=== PATIENT | male | born 1975 | race Caucasian/White ===

== ENCOUNTER 2022-11-17 13:56 | Emergency (ER) | payer OTHER ==
[2022-11-17 14:07] VITALS: RESP 18
[2022-11-17] MEDS ORDERED: SODIUM CHLORIDE 0.9% 1,000 ML IV ONE (14:57)
--- NOTE | 2022-11-17 15:29 | ED ---
General Adult HPI - General Chief complaint: Skin/Abscess/Foreign Body Stated complaint: rash on groin Time Seen by Provider: 11/17/22 14:15 Source: patient, RN notes reviewed Mode of arrival: ambulatory Limitations: no limitations - History of Present Illness Initial comments: 47-year-old male with no significant past medical history of the ER with a chief complaint of rash. He reports that yesterday he noticed a bright red rash in his bilateral groin area. He denies any new lotions or detergents, soaps. He has never had this before. No one else in the household has this. He denies any fever, chills. He tried putting an antifungal cream on it which made it worse. He admits that it is painful with palpation. - Related Data Allergies Allergy/AdvReac Type Severity Reaction Status Date / Time No Known Allergies Allergy Verified 11/17/22 14:07 Review of Systems ROS Statement: Those systems with pertinent positive or pertinent negative responses have been documented in the HPI. ROS Other: All systems not noted in ROS Statement are negative. Past Medical History Past Medical History: Hypertension Additional Past Medical History / Comment(s): chronic back pain. History of Any Multi-Drug Resistant Organisms: None Reported Past Surgical History: Orthopedic Surgery Smoking Status: Current every day smoker Past Alcohol Use History: None Reported Past Drug Use History: Methamphetamine General Exam Limitations: no limitations General appearance: alert, in no apparent distress Head exam: Present: atraumatic, normocephalic, normal inspection Eye exam: Present: normal appearance, PERRL, EOMI. Absent: scleral icterus, conjunctival injection, periorbital swelling ENT exam: Present: normal exam, mucous membranes moist Neck exam: Present: normal inspection. Absent: tenderness, meningismus, lymphadenopathy Respiratory exam: Present: normal lung sounds bilaterally. Absent: respiratory distress, wheezes, rales, rhonchi, stridor Cardiovascular Exam: Present: regular rate, normal rhythm, normal heart sounds. Absent: systolic murmur, diastolic murmur, rubs, gallop, clicks GI/Abdominal exam: Present: soft, normal bowel sounds. Absent: distended, tenderness, guarding, rebound, rigid exam: Present: other ([employer] Wan present during exam ) External exam: Present: erythema, other (Erythema to bilateral groin folds with purulent discharge with marked tenderness ). Absent: normal external exam Extremities exam: Present: normal inspection, full ROM, normal capillary refill. Absent: tenderness, pedal edema, joint swelling, calf tenderness Back exam: Present: normal inspection Neurological exam: Present: alert, oriented X3, CN II-XII intact Psychiatric exam: Present: normal affect, normal mood Skin exam: Present: warm, dry, intact, normal color. Absent: rash Course Vital Signs 11/17/22 11/17/22 11/17/22 14:04 15:07 16:07 Temperature 97.9 F Pulse Rate 106 H 100 97 Respiratory 18 18 18 Rate Blood Pressure 144/97 150/76 O2 Sat by Pulse 97 96 96 Oximetry 11/17/22 16:52 Temperature 97.4 F L Pulse Rate 102 H Respiratory 18 Rate Blood Pressure 156/94 O2 Sat by Pulse 95 Oximetry Medical Decision Making - Medical Decision Making Was pt. sent in by a medical professional or institution (Dr. PA, COFFEE GRINDER, urgent care, hospital, or senior care...) When possible be specific @ -[No] Did you speak to anyone other than the patient for history (EMS, parent, family, police, friend...)? What history was obtained from this source @ -[No] Did you review nursing and triage notes (agree or disagree)? Why? @ -[I reviewed and agree with nursing and triage notes] Were old charts reviewed (outside hosp., previous admission, EMS record, old EKG, old radiological studies, urgent care reports/EKG's, senior care records)? Report findings @ -[No old charts were reviewed] Differential Diagnosis (chest pain, altered mental status, abdominal pain women, abdominal pain men, vaginal bleeding, weakness, fever, dyspnea, syncope, headache, dizziness, GI bleed, back pain, seizure, CVA, palpatations, mental health, musculoskeletal)? @ -[not applicable] EKG interpreted by me (3pts min.). @ -[As above] X-rays interpreted by me (1pt min.). @ -[None done] CT interpreted by me (1pt min.). @ -[None done] U/S interpreted by me (1pt. min.). @ -[None done] What testing was considered but not performed or refused? (CT, X-rays, U/S, labs)? Why? @ -[None] What meds were considered but not given or refused? Why? @ -[None] Did you discuss the management of the patient with other professionals (professionals i.e. , PA, COFFEE GRINDER, lab, RT, psych nurse, social services manager, recreation program specialist, teacher, corporate banking officer, supportive employment case manager)? Give summary @ -[No] Was smoking cessation discussed for >3mins.? @ -[No] Was critical care preformed (if so, how long)? @ -[No] Were there social determinants of health that impacted care today? How? (Homelessness, low income, unemployed, alcoholism, drug addiction, transportation, low edu. Level, literacy, decrease access to med. care, [facility], rehab)? @ -[No] Was there de-escalation of care discussed even if they declined (Discuss DNR or withdrawal of care, Hospice)? DNR status @ -[No] What co-morbidities impacted this encounter? (DM, HTN, Smoking, COPD, CAD, Cancer, CVA, ARF, Chemo, Hep., AIDS, mental health diagnosis, sleep apnea, morbid obesity)? @ -[None] Was patient admitted / discharged? Hospital course, mention meds given and route, prescriptions, significant lab abnormalities, going to OR and other pertinent info. @ -Discharged. This is a 47-year-old female who presents to the emergency department with rash. Patient had a thorough history and physical exam performed on the ED. Physical exam is essentially unremarkable. Heart rate regular rate and rhythm, lungs clear to auscultation bilaterally abdomen is soft and non-tender. Patient was offered nystatin cream in the ED however, reqested to apply it himself. I discussed the results in detail with the patient verbalized understanding and all questions were addressed. Return precautions were discussed at length. The patient was discharged in stable condition. Case discussed with BHUMIKA [place] who agrees with plan of care Undiagnosed new problem with uncertain prognosis? @ -[No] Drug Therapy requiring intensive monitoring for toxicity (Heparin, Nitro, Insulin, Cardizem)? @ -[No] Were any procedures done? @ -[No] Diagnosis/symptom? @ -skin yeast infection - hx of substance abuse Acute, or Chronic, or Acute on Chronic? @ -acute Uncomplicated (without systemic symptoms) or Complicated (systemic symptoms)? @ -uncomplicated Side effects of treatment? @ -[No] Exacerbation, Progression, or Severe Exacerbation? @ -[No] Poses a threat to life or bodily function? How? (Chest pain, [place], [place], pneumonia, PE, COPD, DKA, ARF, appy, cholecystitis, CVA, Diverticulitis, Homicidal, Suicidal, threat to staff... and all critical care pts) @ -low likelihood - Lab Data Result diagrams: 11/17/22 15:13 11/17/22 15:13 Lab Results 11/17/22 11/17/22 11/17/22 Range/Units 15:13 15:13 15:13 WBC 13.8 H (3.8-10.6) k/uL RBC 5.98 H (4.30-5.90) m/uL Hgb 16.2 (13.0-17.5) gm/dL Hct 49.0 (39.0-53.0) % MCV 81.9 (80.0-100.0) fL MCH 27.0 (25.0-35.0) pg MCHC 33.0 (31.0-37.0) g/dL RDW 14.6 (11.5-15.5) % Plt Count 183 (150-450) k/uL MPV 7.4 Neutrophils % 71 % Lymphocytes % 18 % Monocytes % 8 % Eosinophils % 1 % Basophils % 1 % Neutrophils # 9.8 H (1.3-7.7) k/uL Lymphocytes # 2.5 (1.0-4.8) k/uL Monocytes # 1.0 (0-1.0) k/uL Eosinophils # 0.2 (0-0.7) k/uL Basophils # 0.1 (0-0.2) k/uL ESR 4 (0-15) mm/hr Sodium 132 L (137-145) mmol/L Potassium 3.6 (3.5-5.1) mmol/L Chloride 102 (98-107) mmol/L Carbon Dioxide 23 (22-30) mmol/L Anion Gap 7 mmol/L BUN 23 H (9-20) mg/dL Creatinine 0.89 (0.66-1.25) mg/dL Est GFR (CKD-EPI)AfAm >90 (>60 ml/min/1.73 sqM) Est GFR (CKD-EPI)NonAf >90 (>60 ml/min/1.73 sqM) Glucose 173 H (74-99) mg/dL Plasma Lactic Acid Hoang 1.2 (0.7-2.0) mmol/L Calcium 8.7 (8.4-10.2) mg/dL Total Bilirubin 0.8 (0.2-1.3) mg/dL AST 48 (17-59) U/L ALT 44 (4-49) U/L Alkaline Phosphatase 97 (38-126) U/L C-Reactive Protein 4.0 H (<1.0) mg/dL Total Protein 6.3 (6.3-8.2) g/dL Albumin 3.7 (3.5-5.0) g/dL Disposition Clinical Impression: Intertr[facility] Disposition: HOME SELF-CARE Condition: Stable Instructions (If sedation given, give patient instructions): Skin Yeast Infection (ED) Additional Instructions: These return to the nearest emergency department if symptoms worsen or persist Is patient prescribed a controlled substance at d/c from ED?: No Referrals: Cecilio Quinones DO [Primary Care Provider] - 1-2 days Time of Disposition: 16:29
[2022-11-17 15:37] LABS: Basophils # (A) 0.1 k/uL (0-0.2); Basophils % (A) 1 %; Eosinophils # (A) 0.2 k/uL (0-0.7); Eosinophils % (A) 1 %; HGB 16.2 gm/dL (13.0-17.5); Lymphocytes # (A) 2.5 k/uL (1.0-4.8); Lymphocytes % (A) 18 %; MCV 81.9 fL (80.0-100.0); Mean Platelet Volume 7.4; Monocytes % (A) 8 %; Neutrophils # (A) 9.8 k/uL (1.3-7.7); Neutrophils % (A) 71 %; Platelet Count 183 k/uL (150-450); RBC 5.98 m/uL (4.30-5.90); RDW 14.6 % (11.5-15.5); WBC 13.8 k/uL (3.8-10.6)
[2022-11-17 15:46] LABS: ALT 44 U/L (4-49); AST 48 U/L (17-59); African American GFR (CKD) >90 (>60 ml/min/1.73 sqM); Albumin 3.7 g/dL (3.5-5.0); Alkaline Phosphatase 97 U/L (38-126); Anion Gap 7 mmol/L; Blood Urea Nitrogen 23 mg/dL (9-20); Calcium 8.7 mg/dL (8.4-10.2); Carbon Dioxide 23 mmol/L (22-30); Chloride 102 mmol/L (98-107); Glucose 173 mg/dL (74-99); Non-African American GFR(CKD) >90 (>60 ml/min/1.73 sqM); Potassium 3.6 mmol/L (3.5-5.1); Sodium 132 mmol/L (137-145); Total Bilirubin 0.8 mg/dL (0.2-1.3); Total Protein 6.3 g/dL (6.3-8.2)
[2022-11-17] MEDS ORDERED: HYDROmorphone 1 MG/ML 1 ML SYRINGE IVP STA (16:00)
[2022-11-17 16:45] LABS: Erythrocyte Sedimentation Rate 4 mm/hr (0-15)
[2022-11-17 16:54] VITALS: BP 156/94; PULSE 102; TEMP 97.4
[2022-11-17] MEDS ORDERED: NYSTATIN 100,000UNIT/GM CREAM 30 GM TUBE TOPICAL SCH (21:00)
== END 2022-11-17 16:56 | disposition home or self-care (01) ==
LOC: EC 13:56
DX: L30.4 Erythema intertrigo (principal); I10 Essential (primary) hypertension; F17.200 Nicotine dependence, unspecified, uncomplicated; F15.90 Other stimulant use, unspecified, uncomplicated
CPT/HCPCS: 36415; 80053; 83605; 85025; 85652; 86140; 87040; 96360; 99283